=== PATIENT | female | born 1975 | race Asian ===

== ENCOUNTER 2018-11-25 09:14 | Emergency (ER) | payer SELFPAY ==
[~2018-11-25] VITALS: Ht 157.5 cm; Wt 64.4 kg
[2018-11-25 09:55] LABS: Basophils # (auto) 0.1 uL; Basophils % (auto) 0.9 % (0.0-2.0); Eosinophils # (auto) 0.2 uL; Hemoglobin 9.2 g/dL (12.2-16.2); Monocytes # (auto) 0.5 uL; Neutrophils # (auto) 6.2 uL; Nucleated Red Blood Cells % 0.1 %
[2018-11-25 09:57] LABS: Eosinophils % (auto) 2.1 % (0.0-7.0); Hematocrit 29.9 % (36.0-46.0); Lymphocytes # (auto) 1.9 uL; Lymphocytes % (auto) 21.4 % (10.0-50.0); Mean Corpuscular Hemoglobin 20.5 pg (28.0-32.0); Mean Corpuscular Hgb Conc. 30.8 g/dL (32.0-36.0); Mean Corpuscular Volume 66.4 fL (80.0-100.0); Monocytes % (auto) 5.6 % (0.0-12.0); Platelet Count (auto) 361 10^3/uL (140-450); White Blood Cell 8.8 10^3/uL (4.4-10.8)
[2018-11-25 10:12] LABS: Albumin 3.3 g/dL (3.4-5.0); BUN/Creatinine Ratio 14.6; Calcium 7.9 mg/dL (8.5-10.1); Potassium 3.1 mmol/L (3.5-5.1)
[2018-11-25 10:14] LABS: Bilirubin, Total 0.2 mg/dL (0.2-1.0); Total Protein 7.6 g/dL (6.4-8.2)
[2018-11-25] MEDS ORDERED: POTASSIUM EFFERVESENT TAB 25 MEQ PO ONE (11:15)
[2018-11-25] MEDS ORDERED: cloNIDine HCL 0.1 MG TAB PO ONE (11:15)
[2018-11-25] MEDS ORDERED: ACETAMINOPHEN 325 MG TAB PO ONE ×2 (13:55→14:00)
[2018-11-25 15:10] VITALS: BP 141/85
== END 2018-11-25 15:14 | disposition home or self-care (01) ==
LOC: ER 09:14
DX: N92.0 Excessive and frequent menstruation with regular cycle (principal)
CPT/HCPCS: 36415; 80053; 85025; 93005; 94761

== ENCOUNTER 2021-10-31 13:31 | Inpatient (IN) | payer OTHER ==
[2021-10-31] VITALS (10 sets, daily range): BP systolic 136–199; BP diastolic 64–94
[~2021-10-31] VITALS: Ht 154.9 cm; Wt 53.2 kg
[2021-10-31 15:00] LABS: Eosinophils # (auto) 0.1 10 ^3/uL (0-0.8); Lymphocytes # (auto) 0.9 10 ^3/uL (0.4-5.4); Mean Corpuscular Hemoglobin 21.1 pg (28.0-32.0); Neutrophils # (auto) 7.6 10 ^3/uL (1.6-8.6); Red Blood Cells 2.77 10^6/uL (4.0-5.20)
[2021-10-31 15:03] LABS: Basophils # (auto) 0 10 ^3/uL (0-0.2); Basophils % (auto) 0.5 % (0.0-2.0); Eosinophils % (auto) 0.8 % (0.0-7.0); Hematocrit 18.2 % (36.0-46.0); Lymphocytes % (auto) 10.2 % (10.0-50.0); Mean Corpuscular Volume 65.7 fL (80.0-100.0); Monocytes # (auto) 0.4 10 ^3/uL (0-1.3); Monocytes % (auto) 4.9 % (0.0-12.0); Neutrophils % (auto) 83.6 % (37.0-80.0); Nucleated Red Blood Cells % 0.1 %; Red Cell Distribution Width 18.6 % (11.8-14.3); White Blood Cell 9.1 10^3/uL (4.4-10.8)
[2021-10-31 15:12] LABS: Albumin 2.8 g/dL (3.4-5.0); Calcium 8.4 mg/dL (8.5-10.1); Potassium 3.1 mmol/L (3.5-5.1)
[2021-10-31 15:14] LABS: BUN/Creatinine Ratio 11.9
[2021-10-31 15:24] LABS: Bilirubin, Total 0.3 mg/dL (0.2-1.0); Total Protein 7.1 g/dL (6.4-8.2)
[2021-10-31 15:33] LABS: Hemoglobin 5.8 g/dL (12.2-16.2)
[2021-10-31 15:38] LABS: Urine Bacteria FEW /hpf (None Seen); Urine Blood 2+ /uL (Negative); Urine Specific Gravity 1.011 (1.001-1.035); Urine WBC 2 /hpf (0 - 5)
[2021-10-31] MEDS ORDERED: ASPirin 325 MG TAB PO ONE (15:45)
[2021-10-31] MEDS ORDERED: LABETALOL HCL 200 MG TAB PO ONE (15:45)
[2021-10-31] MEDS ORDERED: POTASSIUM CHL 20MEQ/100ML 100 ML IV ONE ×2 (15:45→21:00)
[2021-10-31] MEDS ORDERED: POTASSIUM EFFERVESENT TAB 25 MEQ PO ONE (15:45)
[2021-10-31] MEDS ORDERED: LABETALOL HCL 5 MG/ML 4ML SYRINGE IV ONE (15:45)
[2021-10-31] MEDS ORDERED: hydrALAZINE HCL 20 MG/ML VL IV PRN (18:30)
[2021-10-31] MEDS ORDERED: ONDANSETRON HCL 4 MG/2 ML VIAL IV PRN (19:00)
[2021-10-31] MEDS ORDERED: MORPHINE SULFATE 4 MG/ML SYR/VIAL IV PRN (19:00)
[2021-10-31] MEDS ORDERED: HYDROcodone-ACET 5/325MG TAB PO PRN (19:00)
[2021-10-31] MEDS: NIFEdipine ER 30 MG TAB PO SCH (22:01)
[2021-10-31] MEDS: SODIUM CHLORIDE 0.9% 1,000 ML IV SCH (23:42)
[2021-11-01] VITALS (7 sets, daily range): BP systolic 134–152; BP diastolic 67–81
[2021-11-01 05:20] LABS: Basophils # (auto) 0.1 10 ^3/uL (0-0.2); Eosinophils # (auto) 0.1 10 ^3/uL (0-0.8)
[2021-11-01 05:22] LABS: Basophils % (auto) 1.2 % (0.0-2.0); Eosinophils % (auto) 1.2 % (0.0-7.0); Hematocrit 25.1 % (36.0-46.0); Hemoglobin 8.2 g/dL (12.2-16.2); Lymphocytes # (auto) 1.5 10 ^3/uL (0.4-5.4); Lymphocytes % (auto) 18.6 % (10.0-50.0); Mean Corpuscular Hemoglobin 23.2 pg (28.0-32.0); Mean Corpuscular Hgb Conc. 32.8 g/dL (32.0-36.0); Mean Corpuscular Volume 70.8 fL (80.0-100.0); Monocytes # (auto) 0.6 10 ^3/uL (0-1.3); Monocytes % (auto) 7.4 % (0.0-12.0); Neutrophils # (auto) 5.6 10 ^3/uL (1.6-8.6); Neutrophils % (auto) 71.6 % (37.0-80.0); Red Blood Cells 3.54 10^6/uL (4.0-5.20); White Blood Cell 7.8 10^3/uL (4.4-10.8)
[2021-11-01 05:38] LABS: Albumin 2.8 g/dL (3.4-5.0); BUN/Creatinine Ratio 10.3; Calcium 8.6 mg/dL (8.5-10.1); Potassium 3.5 mmol/L (3.5-5.1)
[2021-11-01 05:40] LABS: Bilirubin, Total 0.9 mg/dL (0.2-1.0)
[2021-11-01] MEDS: LOSARTAN POTASSIUM 50 MG TAB PO SCH (10:34)
[2021-11-01] MEDS: ACETAMINOPHEN 325 MG TAB PO PRN ×2 (10:55→19:55)
[2021-11-01] MEDS: SODIUM CHLORIDE 0.9% 1,000 ML IV SCH (12:26)
[2021-11-01] MEDS: NIFEdipine ER 30 MG TAB PO SCH (20:59)
[2021-11-02] MEDS: SODIUM CHLORIDE 0.9% 1,000 ML IV SCH (04:20)
[2021-11-02 05:00] VITALS: BP 129/67
[2021-11-02 06:18] LABS: Basophils # (auto) 0.1 10 ^3/uL (0-0.2); Eosinophils # (auto) 0.3 10 ^3/uL (0-0.8); Eosinophils % (auto) 3.6 % (0.0-7.0); Hemoglobin 8.5 g/dL (12.2-16.2); Lymphocytes # (auto) 1.2 10 ^3/uL (0.4-5.4)
[2021-11-02 06:20] LABS: Basophils % (auto) 0.8 % (0.0-2.0); Hematocrit 26.5 % (36.0-46.0); Mean Corpuscular Hgb Conc. 32.1 g/dL (32.0-36.0); Mean Corpuscular Volume 71.7 fL (80.0-100.0); Monocytes # (auto) 0.5 10 ^3/uL (0-1.3); Monocytes % (auto) 6.3 % (0.0-12.0); Neutrophils # (auto) 5.2 10 ^3/uL (1.6-8.6); Neutrophils % (auto) 72.3 % (37.0-80.0); White Blood Cell 7.2 10^3/uL (4.4-10.8)
[2021-11-02 06:24] LABS: Red Cell Distribution Width 21.8 % (11.8-14.3)
[2021-11-02 06:30] LABS: BUN/Creatinine Ratio 10.1; Calcium 8.6 mg/dL (8.5-10.1); Potassium 3.4 mmol/L (3.5-5.1)
[2021-11-02 08:00] VITALS: BP 129/67
[2021-11-02 09:00] VITALS: BP 161/95
[2021-11-02] MEDS: LOSARTAN POTASSIUM 50 MG TAB PO SCH (10:09)
[2021-11-02] MEDS ORDERED: POTASSIUM EFFERVESENT TAB 25 MEQ PO ONE (11:30)
[2021-11-02 13:00] VITALS: BP 151/81
[2021-11-02 17:00] VITALS: BP 144/91
[2021-11-02] MEDS ORDERED: LORazepam 2MG/ML-1ML VIAL IV PRN (20:30)
[2021-11-02] MEDS: NIFEdipine ER 30 MG TAB PO SCH (21:01)
[2021-11-02 22:04] VITALS: BP 158/86
[2021-11-03 05:06] LABS: Basophils # (auto) 0.1 10 ^3/uL (0-0.2); Eosinophils # (auto) 0.3 10 ^3/uL (0-0.8); Lymphocytes # (auto) 1.4 10 ^3/uL (0.4-5.4); Nucleated Red Blood Cells % 0.1 %
[2021-11-03 05:11] LABS: Basophils % (auto) 0.9 % (0.0-2.0); Eosinophils % (auto) 4.6 % (0.0-7.0); Hematocrit 27.3 % (36.0-46.0); Hemoglobin 8.8 g/dL (12.2-16.2); Lymphocytes % (auto) 21.6 % (10.0-50.0); Mean Corpuscular Hemoglobin 23.4 pg (28.0-32.0); Mean Corpuscular Hgb Conc. 32.4 g/dL (32.0-36.0); Mean Corpuscular Volume 72.2 fL (80.0-100.0); Monocytes # (auto) 0.4 10 ^3/uL (0-1.3); Monocytes % (auto) 6.8 % (0.0-12.0); Neutrophils # (auto) 4.2 10 ^3/uL (1.6-8.6); Neutrophils % (auto) 66.1 % (37.0-80.0); Red Blood Cells 3.77 10^6/uL (4.0-5.20); White Blood Cell 6.4 10^3/uL (4.4-10.8)
[2021-11-03 05:25] VITALS: BP 132/75
[2021-11-03 05:31] LABS: Red Cell Distribution Width 22.1 % (11.8-14.3)
[2021-11-03 05:32] LABS: BUN/Creatinine Ratio 11.6; Calcium 9.1 mg/dL (8.5-10.1); Potassium 3.7 mmol/L (3.5-5.1)
[2021-11-03 09:00] VITALS: BP 132/76
[2021-11-03] MEDS: LOSARTAN POTASSIUM 50 MG TAB PO SCH (10:20)
[2021-11-03 12:30] VITALS: BP 145/85
[2021-11-03 17:28] VITALS: BP 139/94
[2021-11-03 22:00] VITALS: BP 161/88
[2021-11-03] MEDS ORDERED: ATORVASTATIN 20 MG TAB PO SCH (22:00)
[2021-11-03] MEDS: NIFEdipine ER 30 MG TAB PO SCH (23:18)
[2021-11-03 23:23] LABS: Cholesterol 165 mg/dL (< 200)
[2021-11-03 23:26] LABS: HDL Cholesterol 47 mg/dL (40-59); LDL Cholesterol 97 mg/dL (< 100); Triglycerides 95 mg/dL (< 150)
[2021-11-04 05:00] VITALS: BP 144/81
[2021-11-04 08:00] VITALS: BP 135/83
[2021-11-04 08:03] LABS: Basophils # (auto) 0.1 10 ^3/uL (0-0.2); Eosinophils # (auto) 0.3 10 ^3/uL (0-0.8); Hemoglobin 9.9 g/dL (12.2-16.2); Lymphocytes # (auto) 1.5 10 ^3/uL (0.4-5.4); Mean Corpuscular Volume 72.2 fL (80.0-100.0)
[2021-11-04 08:07] LABS: Basophils % (auto) 0.9 % (0.0-2.0); Eosinophils % (auto) 4.1 % (0.0-7.0); Hematocrit 31.5 % (36.0-46.0); Lymphocytes % (auto) 21.1 % (10.0-50.0); Mean Corpuscular Hemoglobin 22.8 pg (28.0-32.0); Mean Corpuscular Hgb Conc. 31.6 g/dL (32.0-36.0); Monocytes # (auto) 0.3 10 ^3/uL (0-1.3); Monocytes % (auto) 4.8 % (0.0-12.0); Neutrophils # (auto) 4.9 10 ^3/uL (1.6-8.6); Neutrophils % (auto) 69.1 % (37.0-80.0); Nucleated Red Blood Cells % 0.1 %; Red Blood Cells 4.35 10^6/uL (4.0-5.20); White Blood Cell 7.1 10^3/uL (4.4-10.8)
[2021-11-04 08:27] LABS: BUN/Creatinine Ratio 16.2; Calcium 9.3 mg/dL (8.5-10.1); Potassium 3.8 mmol/L (3.5-5.1)
[2021-11-04] MEDS ORDERED: ATOR20TA50 PO (10:06)
[2021-11-04] MEDS ORDERED: NIFE1TAB31 PO (10:06)
[2021-11-04] MEDS ORDERED: LOSA-69 PO (10:06)
[2021-11-04] MEDS: LOSARTAN POTASSIUM 50 MG TAB PO SCH (10:17)
[2021-11-04 11:25] VITALS: BP 149/76
[2021-11-04 11:51] VITALS: BP 149/76
[2021-11-04 12:00] VITALS: BP 149/76
== END 2021-11-04 12:55 | disposition home or self-care (01) | DRG 532 ==
LOC: ER 13:33 → EDUNIT# 13:33 → TELE 19:00 → TELE-WESTW 21:07
PROVIDERS: ADMIT Internal Medicine; ATTEND Internal Medicine Pulmonary Disease
PROC: 30233N1 Transfusion of Nonautologous Red Blood Cells into Peripheral Vein, Percutaneous Approach (ICD-10-PCS; principal; 2021-10-31)
DX: N92.1 Excessive and frequent menstruation with irregular cycle (principal); I63.9 Cerebral infarction, unspecified; I21.4 Non-ST elevation (NSTEMI) myocardial infarction; D62 Acute posthemorrhagic anemia; I16.1 Hypertensive emergency; E87.6 Hypokalemia; N93.9 Abnormal uterine and vaginal bleeding, unspecified; R47.1 Dysarthria and anarthria; D25.9 Leiomyoma of uterus, unspecified; R47.89 Other speech disturbances; Z20.822 Contact with and (suspected) exposure to COVID-19; I10 Essential (primary) hypertension; Z79.82 Long term (current) use of aspirin; Z79.899 Other long term (current) drug therapy; Z82.49 Family history of ischemic heart disease and other diseases of the circulatory system; Z83.3 Family history of diabetes mellitus
CPT/HCPCS: 36415; 36430; 70450; 70551; 71046; 76856; 80048; 80053; 80061; 81001; 81025; 83735; 84484; 85025; 86850; 86900; 86901; 86920; 92523; 93005; 93306; 93886; 96365; 96375; 97163; 99291; G0378; J3480; J3490

== ENCOUNTER 2022-01-20 08:48 | Inpatient (IN) | payer MEDICAID, OTHER ==
[~2022-01-20] VITALS: Ht 154.9 cm; Wt 47.0 kg
[~2022-01-20 08:48] MED LIST: ATOR20TA50 PO; LOSA-69 PO; NIFE1TAB31 PO
[2022-01-20] MEDS ORDERED: SODIUM CHLORIDE 0.9% 1,000 ML IV ONE ×2 (09:30)
[2022-01-20 09:39] LABS: Basophils # (auto) 0.1 10 ^3/uL (0-0.2); Eosinophils # (auto) 0.1 10 ^3/uL (0-0.8); Lymphocytes # (auto) 1.3 10 ^3/uL (0.4-5.4)
[2022-01-20 09:43] LABS: Basophils % (auto) 0.7 % (0.0-2.0); Eosinophils % (auto) 1.3 % (0.0-7.0); Hematocrit 26.9 % (36.0-46.0); Hemoglobin 8.3 g/dL (12.2-16.2); Mean Corpuscular Hemoglobin 21.6 pg (28.0-32.0); Mean Corpuscular Hgb Conc. 30.9 g/dL (32.0-36.0); Mean Corpuscular Volume 69.8 fL (80.0-100.0); Monocytes # (auto) 0.5 10 ^3/uL (0-1.3); Monocytes % (auto) 6.7 % (0.0-12.0); Neutrophils # (auto) 5.9 10 ^3/uL (1.6-8.6); Neutrophils % (auto) 75.3 % (37.0-80.0); Red Blood Cells 3.86 10^6/uL (4.0-5.20); White Blood Cell 7.9 10^3/uL (4.4-10.8)
[2022-01-20 09:44] LABS: Red Cell Distribution Width 22.1 % (11.8-14.3)
[2022-01-20 09:53] LABS: Albumin 3.2 g/dL (3.4-5.0); Calcium 9.1 mg/dL (8.5-10.1); Potassium 3.6 mmol/L (3.5-5.1)
[2022-01-20 09:58] LABS: BUN/Creatinine Ratio 12.2; Bilirubin, Total 0.2 mg/dL (0.2-1.0); Total Protein 8.6 g/dL (6.4-8.2)
[2022-01-20 10:00] LABS: Urine Bacteria NONE SEEN /hpf (None Seen); Urine Blood 3+ /uL (Negative); Urine Specific Gravity 1.018 (1.001-1.035); Urine WBC 1 /hpf (0 - 5)
[2022-01-20] MEDS ORDERED: ENOXAPARIN SOD 100 MG/1 ML SYRINGE SC ONE (11:00)
[2022-01-20] MEDS ORDERED: LABETALOL HCL 5 MG/ML 4ML SYRINGE IV ONE ×2 (11:15→15:24)
[2022-01-20 13:34] LABS: Amphetamine Screen, Urine NEGATIVE (NEGATIVE); Barbiturate Scree,Urine NEGATIVE (NEGATIVE); Benzodiazephine Screen, Urine NEGATIVE (NEGATIVE); Cannabinoid Screen, Urine NEGATIVE (NEGATIVE); Cocaine Screen, Urine NEGATIVE (NEGATIVE); Opiate Scree,Urine NEGATIVE (NEGATIVE); Phencyclidine Screen, Urine NEGATIVE (NEGATIVE)
[2022-01-20] MEDS ORDERED: NITROGLYCERIN 0.4 MG SL TAB SL PRN (14:45)
[2022-01-20] MEDS ORDERED: ALBUTEROL SULF HFA 90MCG INH 200DOSE IN PRN (14:45)
[2022-01-20] MEDS ORDERED: ACETAMINOPHEN 500 MG TAB PO PRN (14:45)
[2022-01-20] MEDS ORDERED: MORPHINE SULFATE INJ 2 MG/ml SYRG IV PRN (14:45)
[2022-01-20] MEDS ORDERED: DexAMETHasone SOD PHOS 10MG/1ML VIAL INJ IV ONE (15:00)
[2022-01-20 15:47] VITALS: BP 192/95
[2022-01-20 15:55] LABS: Albumin 3.1 g/dL (3.4-5.0); Magnesium 2.2 mg/dL (1.6-2.6); Potassium 3.6 mmol/L (3.5-5.1)
[2022-01-20 16:03] LABS: BUN/Creatinine Ratio 12.2; Bilirubin, Total 0.1 mg/dL (0.2-1.0); CRP High Sensitivity 1.59 mg/dL (< 0.3); Total Protein 8.3 g/dL (6.4-8.2)
[2022-01-20 16:11] LABS: Thyroid Stimulating Hormone 1.29 uIU/mL (0.358-3.74)
[2022-01-20 16:33] VITALS: BP 173/90
[2022-01-20 16:55] LABS: Basophils # (auto) 0.1 10 ^3/uL (0-0.2); Eosinophils # (auto) 0.1 10 ^3/uL (0-0.8); Hemoglobin 7.3 g/dL (12.2-16.2); Lymphocytes # (auto) 1.8 10 ^3/uL (0.4-5.4); Mean Corpuscular Hemoglobin 21.7 pg (28.0-32.0); Monocytes # (auto) 0.3 10 ^3/uL (0-1.3); Nucleated Red Blood Cells % 0.1 %; Red Blood Cells 3.35 10^6/uL (4.0-5.20)
[2022-01-20 16:57] LABS: Basophils % (auto) 1.1 % (0.0-2.0); Eosinophils % (auto) 1.9 % (0.0-7.0); Hematocrit 23.2 % (36.0-46.0); Lymphocytes % (auto) 30.6 % (10.0-50.0); Mean Corpuscular Hgb Conc. 31.4 g/dL (32.0-36.0); Monocytes % (auto) 5.4 % (0.0-12.0); Neutrophils # (auto) 3.6 10 ^3/uL (1.6-8.6); Red Cell Distribution Width 21.6 % (11.8-14.3); White Blood Cell 5.9 10^3/uL (4.4-10.8)
[2022-01-20 17:00] VITALS: BP 193/98
[2022-01-20 17:03] LABS: Mean Corpuscular Volume 69.2 fL (80.0-100.0)
[2022-01-20] MEDS: hydrALAZINE HCL 20 MG/ML VL IV PRN (17:38)
[2022-01-20 20:00] VITALS: BP 166/93
[2022-01-20 22:00] VITALS: BP 166/93
[2022-01-20] MEDS: NIFEdipine ER 30 MG TAB PO SCH (23:13)
[2022-01-21 05:00] VITALS: BP 142/79
[2022-01-21 08:37] LABS: Basophils # (auto) 0.1 10 ^3/uL (0-0.2); Eosinophils # (auto) 0 10 ^3/uL (0-0.8); Lymphocytes # (auto) 1.4 10 ^3/uL (0.4-5.4); Red Blood Cells 3.97 10^6/uL (4.0-5.20)
[2022-01-21 08:39] LABS: Basophils % (auto) 1.4 % (0.0-2.0); Hematocrit 27.6 % (36.0-46.0); Hemoglobin 8.5 g/dL (12.2-16.2); Lymphocytes % (auto) 18.6 % (10.0-50.0); Mean Corpuscular Hemoglobin 21.5 pg (28.0-32.0); Mean Corpuscular Hgb Conc. 30.9 g/dL (32.0-36.0); Mean Corpuscular Volume 69.6 fL (80.0-100.0); Monocytes # (auto) 0.4 10 ^3/uL (0-1.3); Monocytes % (auto) 4.7 % (0.0-12.0); Neutrophils # (auto) 5.8 10 ^3/uL (1.6-8.6); Neutrophils % (auto) 75.3 % (37.0-80.0); White Blood Cell 7.6 10^3/uL (4.4-10.8)
[2022-01-21 08:52] VITALS: BP 154/84
[2022-01-21 08:52] LABS: Albumin 3.4 g/dL (3.4-5.0); Calcium 9.2 mg/dL (8.5-10.1); Potassium 3.7 mmol/L (3.5-5.1)
[2022-01-21 08:55] LABS: BUN/Creatinine Ratio 14.7; Bilirubin, Total 0.2 mg/dL (0.2-1.0)
[2022-01-21] MEDS: ENOXAPARIN SOD 40 MG/0.4 ML SYRINGE SC SCH (09:50)
[2022-01-21] MEDS: LOSARTAN POTASSIUM 50 MG TAB PO SCH (09:51)
[2022-01-21] MEDS: CHOLECALCIFEROL (VITD3) 2,000 UNIT CAP/TAB PO SCH (09:51)
[2022-01-21] MEDS: ASCORBIC ACID 1,000 MG TAB PO SCH (09:51)
[2022-01-21] MEDS: AZITHROMYCIN 500MG/ 250ML 250 ML IV SCH (09:52)
[2022-01-21] MEDS ORDERED: DexAMETHasone SOD PHOS 10MG/1ML VIAL INJ IV SCH (10:00)
[2022-01-21] MEDS ORDERED: REMDESIVIR PER PHARMACY 0 ML IV SCH (11:00)
[2022-01-21 13:00] VITALS: BP 141/78
[2022-01-21 16:37] VITALS: BP 141/87
[2022-01-21 22:00] VITALS: BP 135/78
[2022-01-21] MEDS: BUDESONIDE (INHALATION) 180 MCG IH IN SCH (22:00)
[2022-01-21] MEDS: NIFEdipine ER 30 MG TAB PO SCH (22:05)
[2022-01-22] VITALS (13 sets, daily range): BP systolic 126–170; BP diastolic 73–100
[2022-01-22 05:42] LABS: Eosinophils # (auto) 0 10 ^3/uL (0-0.8); Monocytes # (auto) 0.5 10 ^3/uL (0-1.3); Neutrophils # (auto) 7.4 10 ^3/uL (1.6-8.6)
[2022-01-22 05:46] LABS: Basophils # (auto) 0.1 10 ^3/uL (0-0.2); Basophils % (auto) 0.6 % (0.0-2.0); Eosinophils % (auto) 0.4 % (0.0-7.0); Hematocrit 21.9 % (36.0-46.0); Lymphocytes # (auto) 2.4 10 ^3/uL (0.4-5.4); Lymphocytes % (auto) 23.2 % (10.0-50.0); Mean Corpuscular Hemoglobin 22.3 pg (28.0-32.0); Mean Corpuscular Hgb Conc. 32.1 g/dL (32.0-36.0); Mean Corpuscular Volume 69.7 fL (80.0-100.0); Monocytes % (auto) 4.9 % (0.0-12.0); Neutrophils % (auto) 70.9 % (37.0-80.0); Red Blood Cells 3.15 10^6/uL (4.0-5.20); White Blood Cell 10.4 10^3/uL (4.4-10.8)
[2022-01-22 05:59] LABS: Red Cell Distribution Width 21.9 % (11.8-14.3)
[2022-01-22 06:00] LABS: Albumin 3.1 g/dL (3.4-5.0); Calcium 8.7 mg/dL (8.5-10.1); Potassium 3.8 mmol/L (3.5-5.1)
[2022-01-22 06:03] LABS: Bilirubin, Total 0.2 mg/dL (0.2-1.0); Total Protein 7.7 g/dL (6.4-8.2)
[2022-01-22] MEDS: BUDESONIDE (INHALATION) 180 MCG IH IN SCH ×2 (09:48→22:00)
[2022-01-22] MEDS ORDERED: ASPirin-EC 81 mg tab PO SCH (10:00)
[2022-01-22] MEDS: AZITHROMYCIN 500MG/ 250ML 250 ML IV SCH (10:12)
[2022-01-22] MEDS: ENOXAPARIN SOD 40 MG/0.4 ML SYRINGE SC SCH (10:12)
[2022-01-22] MEDS: LOSARTAN POTASSIUM 50 MG TAB PO SCH (10:13)
[2022-01-22] MEDS: ASCORBIC ACID 1,000 MG TAB PO SCH (10:14)
[2022-01-22] MEDS: CHOLECALCIFEROL (VITD3) 2,000 UNIT CAP/TAB PO SCH (10:14)
[2022-01-22] MEDS: PANTOPRAZOLE 40 MG/10 ML VIAL INJ IV SCH (21:50)
[2022-01-22] MEDS: NIFEdipine ER 30 MG TAB PO SCH (21:51)
[2022-01-23] MEDS: hydrALAZINE HCL 20 MG/ML VL IV PRN (02:04)
[2022-01-23 04:38] LABS: Hemoglobin 10.3 g/dL (12.2-16.2)
[2022-01-23 05:00] VITALS: BP 145/78
[2022-01-23] MEDS: BUDESONIDE (INHALATION) 180 MCG IH IN SCH (06:24)
[2022-01-23 09:03] VITALS: BP 137/84
[2022-01-23] MEDS: PANTOPRAZOLE 40 MG/10 ML VIAL INJ IV SCH (09:41)
[2022-01-23] MEDS: ENOXAPARIN SOD 40 MG/0.4 ML SYRINGE SC SCH (09:41)
[2022-01-23] MEDS: LOSARTAN POTASSIUM 50 MG TAB PO SCH (09:42)
[2022-01-23] MEDS: ASCORBIC ACID 1,000 MG TAB PO SCH (09:42)
[2022-01-23] MEDS: AZITHROMYCIN 500MG/ 250ML 250 ML IV SCH (09:43)
[2022-01-23] MEDS: CHOLECALCIFEROL (VITD3) 2,000 UNIT CAP/TAB PO SCH (09:43)
[2022-01-23 13:00] VITALS: BP 150/90
[2022-01-23 14:08] VITALS: BP 150/90
== END 2022-01-23 15:00 | disposition home or self-care (01) | DRG 137 ==
LOC: ER 08:48 → TELE 14:35 → TELE-CENTR 15:45
PROVIDERS: ADMIT Registered Nurse; ATTEND Hospitalist
PROC: 30233N1 Transfusion of Nonautologous Red Blood Cells into Peripheral Vein, Percutaneous Approach (ICD-10-PCS; principal; 2022-01-22)
DX: U07.1 COVID-19 (principal); J12.82 Pneumonia due to coronavirus disease 2019; D50.9 Iron deficiency anemia, unspecified; I10 Essential (primary) hypertension; J98.11 Atelectasis; N92.1 Excessive and frequent menstruation with irregular cycle; R77.8 Other specified abnormalities of plasma proteins; R80.9 Proteinuria, unspecified; R31.9 Hematuria, unspecified; Z82.49 Family history of ischemic heart disease and other diseases of the circulatory system; Z83.3 Family history of diabetes mellitus
CPT/HCPCS: 36415; 71045; 80053; 80061; 80307; 81001; 82306; 82728; 82962; 83036; 83605; 83615; 83735; 84443; 84484; 85014; 85018; 85025; 85379; 86141; 86850; 86900; 86901; 86920; 87040; 93005; 96361; 96372; 96374; 99291; C9113; G0378; J1100; J3490

== ENCOUNTER 2023-04-20 10:15 | Emergency (ER) | payer MEDICAID ==
[~2023-04-20] VITALS: Ht 154.9 cm; Wt 50.2 kg
[~2023-04-20 10:15] MED LIST changes: -LOSA-69 PO; +LOSA50TA46 PO
[2023-04-20 10:26] VITALS: O2SAT 99
[2023-04-20] MEDS ORDERED: cloNIDine HCL 0.1 MG TAB PO ONE (10:30)
[2023-04-20 15:19] VITALS: BP 113/77; PULSE 84; RESP 16
== END 2023-04-20 15:20 | disposition home or self-care (01) ==
LOC: ER 10:15
DX: I16.0 Hypertensive urgency (principal); I10 Essential (primary) hypertension; Z86.73 Personal history of transient ischemic attack (TIA), and cerebral infarction without residual deficits
CPT/HCPCS: 93005